=== PATIENT | male | born 1940 | race Caucasian/White ===

== ENCOUNTER 2018-11-01 00:04 | Inpatient (IN) | payer MEDICARE, BC ==
[2018-11-01] VITALS (92 sets, daily range): BP systolic 70–115; BP diastolic 32–99; BMI 24.9
[2018-11-01 00:48] LABS: BASOPHILS 0.1 % (0-2); EOSINOPHILS 0 % (0-7); HEMATOCRIT 38.4 % (42.0-54.0); HEMOGLOBIN 13.1 g/dL (13.5-17.5); IMMATURE GRANULOCYTES 0.6 % (0-5); LYMPHOCYTES 4.6 % (15-50); MCH 34.2 pg (26.0-34.0); MCHC 34.1 g/dL (31.0-37.0); MCV 100.3 fL (80.0-100.0); MEAN PLATELET VOLUME 9.4 fL (7.4-10.4); MONOCYTES 4.4 % (2-11); NEUTROPHILS 90.3 % (40-80); PLATELET COUNT 153 10x3/uL (130-400); RBC 3.83 10x6/uL (4.20-6.10); RDW 13.7 % (11.5-14.5); WBC 9.1 10x3/uL (4.8-10.8)
[2018-11-01 00:56] LABS: APTT 39.2 SECONDS (22.8-39.4); INR 1.68 (0.85-1.17); PROTIME 19.2 SECONDS (11.6-15.0)
[2018-11-01 01:04] LABS: ALBUMIN 2.7 g/dL (3.4-5.0); ALKALINE PHOSPHATASE 939 U/L (46-116); ALT (SGPT) 28 U/L (10-68); BILIRUBIN - TOTAL 0.81 mg/dL (0.2-1.3); CALC OSMOLALITY 284 mosm/kg (275-300); CALCIUM 7.4 mg/dL (8.5-10.1); CARBON DIOXIDE 16.2 mmol/L (21.0-32.0); CHLORIDE - SERUM 104 mmol/L (98-107); CREATININE - SERUM 2.1 mg/dL (0.6-1.3); GLUCOSE 154 mg/dL (74-106); POTASSIUM - SERUM 4.9 mmol/L (3.5-5.1); PROTEIN - SERUM 5.8 g/dL (6.4-8.2); SODIUM 138 mmol/L (136-145); UREA NITROGEN 29 mg/dL (7-18); eGFR NON AFRICAN AMERICAN 32 mL/min (90-120)
[2018-11-01 01:21] LABS: CKMB 30.7 U/L (0.0-3.6); CREATINE KINASE 1422 UL (21-232)
[2018-11-01 01:22] LABS: TROPONIN-I 0.291 ng/mL (0.000-0.060)
[2018-11-01 01:30] LABS: APPEARANCE HAZY (CLEAR); BILIRUBIN NEGATIVE (NEGATIVE); COLOR BROWN (YELLOW); GLUCOSE NEGATIVE (NEGATIVE); KETONE NEGATIVE (NEGATIVE); NITRITE NEGATIVE (NEGATIVE); PROTEIN NEGATIVE (NEGATIVE); SPECIFIC GRAVITY 1.015 (1.005-1.020); UROBILINOGEN NORMAL (NORMAL)
[2018-11-01 01:32] LABS: AMORPHOUS SEDIMENT >1+ /lpf (NONE SEEN); BACTERIA NONE SEEN /hpf (NONE SEEN); EPITHELIAL CELLS NSEEN /hpf (0-5); GRANULAR CAST 0-5 /lpf (NONE SEEN); WHITE CELLS - URINE 0-5 /hpf (0-5)
[2018-11-01] MEDS ORDERED: LISINOPRIL20 MG PO (02:46)
[2018-11-01] MEDS ORDERED: CLARITIN 10 MG10 MG PO (02:50)
[2018-11-01] MEDS ORDERED: MECLIZINE HCL25 MG PO (02:52)
[2018-11-01] MEDS ORDERED: MULTI-DAY VITAM1 TAB PO (02:54)
[2018-11-01] MEDS ORDERED: PROTONIX40 MG PO (03:00)
[2018-11-01] MEDS ORDERED: BAYER CHEWABLE81 MG PO (03:02)
[2018-11-01] MEDS ORDERED: COLCRYS0.6 MG PO (03:03)
[2018-11-01] MEDS ORDERED: PLAVIX75 MG PO (03:03)
[2018-11-01] MEDS ORDERED: LEVO-T88 MCG PO (03:04)
[2018-11-01] MEDS ORDERED: ZOFRAN8 MG (03:09)
[2018-11-01] MEDS ORDERED: NORVASC10 MG PO (03:10)
[2018-11-01 07:42] LABS: CKMB 38.3 U/L (0.0-3.6)
[2018-11-01 07:54] LABS: CREATINE KINASE 2072 UL (21-232); TROPONIN-I 0.684 ng/mL (0.000-0.060)
[2018-11-01 13:43] LABS: CKMB 37.5 U/L (0.0-3.6); CREATINE KINASE 2314 UL (21-232)
[2018-11-01 19:15] LABS: CKMB 48.9 U/L (0.0-3.6); CREATINE KINASE 2654 UL (21-232)
[2018-11-01 19:16] LABS: TROPONIN-I 0.636 ng/mL (0.000-0.060)
[2018-11-02] VITALS (61 sets, daily range): BP systolic 84–152; BP diastolic 48–88; BMI 25.1
[2018-11-02 08:05] LABS: HEMATOCRIT 35.7 % (42.0-54.0); HEMOGLOBIN 12.6 g/dL (13.5-17.5); MCH 33.6 pg (26.0-34.0); MCHC 35.3 g/dL (31.0-37.0); MCV 95.2 fL (80.0-100.0); MEAN PLATELET VOLUME 10.3 fL (7.4-10.4); PLATELET COUNT 94 10x3/uL (130-400); RBC 3.75 10x6/uL (4.20-6.10); WBC 12.3 10x3/uL (4.8-10.8)
[2018-11-02 08:21] LABS: ANION GAP 18.8 mmol/L (8-16); BILIRUBIN - TOTAL 0.55 mg/dL (0.2-1.3); CARBON DIOXIDE 15.4 mmol/L (21.0-32.0); POTASSIUM - SERUM 5.2 mmol/L (3.5-5.1)
[2018-11-02 08:22] LABS: CALCIUM 6.8 mg/dL (8.5-10.1)
[2018-11-02 09:07] LABS: CRENATED CELLS 2+; LYMPHOCYTES 8 % (15-50); MONOCYTES 19 % (2-11); NEUTROPHILS 49 % (40-80); PLATELET ESTIMATE DECREASED; ROULEAUX OCC
[2018-11-02 12:41] LABS: LIPASE 40 U/L (73-393)
[2018-11-02 12:43] LABS: AMYLASE - SERUM 424 U/L (25-115)
[2018-11-03] VITALS (89 sets, daily range): BP systolic 85–121; BP diastolic 45–78
[2018-11-03 05:31] LABS: BASOPHILS 0 % (0-2); EOSINOPHILS 0 % (0-7); HEMATOCRIT 30.6 % (42.0-54.0); HEMOGLOBIN 10.9 g/dL (13.5-17.5); IMMATURE GRANULOCYTES 0.5 % (0-5); LYMPHOCYTES 2.8 % (15-50); MCH 32.9 pg (26.0-34.0); MCHC 35.6 g/dL (31.0-37.0); MEAN PLATELET VOLUME 10.4 fL (7.4-10.4); MONOCYTES 1.3 % (2-11); NEUTROPHILS 95.4 % (40-80); RBC 3.31 10x6/uL (4.20-6.10); RDW 14.3 % (11.5-14.5); WBC 11.6 10x3/uL (4.8-10.8)
[2018-11-03 05:38] LABS: MCV 92.4 fL (80.0-100.0); PLATELET COUNT 64 10x3/uL (130-400)
[2018-11-03 05:42] LABS: INR 1.34 (0.85-1.17)
[2018-11-03 06:10] LABS: ALBUMIN 1.9 g/dL (3.4-5.0); ALKALINE PHOSPHATASE 409 U/L (46-116); ALT (SGPT) 39 U/L (10-68); BILIRUBIN - TOTAL 0.57 mg/dL (0.2-1.3); CALC OSMOLALITY 294 mosm/kg (275-300); CHLORIDE - SERUM 107 mmol/L (98-107); CREATININE - SERUM 2.1 mg/dL (0.6-1.3); GLUCOSE 129 mg/dL (74-106); MAGNESIUM - SERUM 2.6 mg/dL (1.8-2.4); PHOSPHOROUS 3.5 mg/dL (2.5-4.9); PROTEIN - SERUM 4.8 g/dL (6.4-8.2); SODIUM 141 mmol/L (136-145); UREA NITROGEN 46 mg/dL (7-18); URIC ACID 5.2 mg/dL (2.6-7.2); VANCOMYCIN - TROUGH 9.5 ug/mL (10.0-20.0); eGFR NON AFRICAN AMERICAN 32 mL/min (90-120)
[2018-11-03 06:44] LABS: CARBON DIOXIDE 24.3 mmol/L (21.0-32.0); CREATINE KINASE 961 UL (21-232); POTASSIUM - SERUM 3.4 mmol/L (3.5-5.1)
[2018-11-03 06:45] LABS: CALCIUM 6.7 mg/dL (8.5-10.1); CKMB 7.3 U/L (0.0-3.6); TROPONIN-I 0.198 ng/mL (0.000-0.060)
[2018-11-03 07:11] LABS: C-REACTIVE PROTEIN 45.8 mg/dL (0.0-0.9)
--- NOTE | 2018-11-03 19:42 | MORECARE ---
CASE MANAGEMENT DISCHARGE SUMMARY PATIENT: ANGELICA ZARATE UNIT: [id number] ADM DATE: 11/01/18 AGE: 78 : 38 SEX: M ROOM/BED: D.2310 AUTHOR: LISSETH GERMAIN PHYSICIAN: REFERRING PHYSICIAN: BUD BERNSTEIN MD DATE OF SERVICE: 11/03/18 Discharge Plan Patient Name: ANGELICA ZARATE [facility] [facility] 1940 Planned Disposition: Anticipated Discharge Date: Discharge Date: Expected LOS: Initial Reviewer: [email or web address] Initial Review Date: 11/03/2018 Generated: 11/03/18 8:42 pm Patient Name: ANGELICA ZARATE Page 62009 at 1942 All edits/amendments must be made on the electronic document DICTATION DATE: 11/03/181941 COUNSELLING PSYCHOLOGIST: CARLY 11/03/181941 RPT#: [id number] DC DATE: STATUS: ADM IN [facility] [address] [place] [address] END OF REPORT
--- NOTE | 2018-11-03 19:49 | MORECARE ---
CASE MANAGEMENT DISCHARGE SUMMARY PATIENT: ANGELICA ZARATE UNIT: [id number] ADM DATE: 11/01/18 AGE: 78 : 38 SEX: M ROOM/BED: D.2310 AUTHOR: LISSETH GERMAIN PHYSICIAN: REFERRING PHYSICIAN: BUD BERNSTEIN MD DATE OF SERVICE: 11/03/18 Discharge Plan Patient Name: ANGELICA ZARATE Facility: [facility]:[place] : 1940 Planned Disposition: Anticipated Discharge Date: Discharge Date: Expected LOS: Initial Reviewer: [email or web address] Initial Review Date: 11/03/2018 Generated: 11/03/18 8:48 pm DCPIA - Discharge Planning Initial Assessment Updated by [email or web address]: Yeny Marcus on 11/03/18 7:44 pm * Is the patient Alert and Oriented? Yes * How many steps to enter\exit or inside your home? * PCP Lion Plascencia * [facility] * Preadmission Environment Home Alone * ADLs Independent * Other Equipment cane, walker * List name and contact numbers for known caregivers / representatives who currently or will assist patient after discharge: Guerda - daughter- [phone] Oralia - daughter- [phone] [place]on - son POA [phone] * Verbal permission to speak to the caregivers and representatives has been obtained from the patient. Yes * Community resources currently utilized None * Additional services required to return to the preadmission environment? No * Can the patient safely return to the preadmission environment? Yes * Has this patient been hospitalized within the prior 30 days at any hospital? No Last DP export: 11/03/18 6:42 pm Patient Name: ANGELICA ZARATE Page 32656 at 1949 All edits/amendments must be made on the electronic document DICTATION DATE: 11/03/181947 HAT BRUSHER MACHINE: CARLY 11/03/181947 RPT#: [id number] DC DATE: STATUS: ADM IN [facility] [address] [place] [address] END OF REPORT
--- NOTE | 2018-11-03 19:55 | MORECARE ---
CASE MANAGEMENT DISCHARGE SUMMARY PATIENT: ANGELICA ZARATE UNIT: [id number] ADM DATE: 11/01/18 AGE: 78 : 38 SEX: M ROOM/BED: D.2310 AUTHOR: MARCELLUS,DOC PHYSICIAN: REFERRING PHYSICIAN: BUD BERNSTEIN MD DATE OF SERVICE: 11/03/18 Discharge Plan Patient Name: ANGELICA ZARATE Facility: [facility]:[place] : 1940 Planned Disposition: Anticipated Discharge Date: Discharge Date: Expected LOS: Initial Reviewer: [email or web address] Initial Review Date: 11/03/2018 Generated: 11/03/18 8:55 pm Comments DCP- Discharge Planning Updated by [email or web address]: Yeny Marcus on 11/03/18 6:[address] Patient Name: ANGELICA ZARATE Admission Status: ER Accout number: [id number] Admission Date: 11-01-2018 : 1940 Admission Diagnosis:SEPSIS, UNSPECIFIED ORGANISM Attending: BUD BERNSTEIN Current LOS: 2 Anticipated DC Date: Planned Disposition: Primary Insurance: MEDICARE A & B Discharge Planning Comments: CM met with patients Daughters (Guerda & Oralia) at patients bedside. Patient is currently on . Family states that patient lives alone. They are uncertain as to what his disposition may be at discharge. They stated he may need home health services or rehab. CM will continue to follow and assist as needed with discharge planning / needs. Production Proofreader: Yeny Marcus DCPIA - Discharge Planning Initial Assessment Updated by [email or web address]: Yeny Marcus on 11/03/18 7:44 pm * Is the patient Alert and Oriented? Yes * How many steps to enter\exit or inside your home? * PCP Lion [facility] * [facility] * Preadmission Environment Home Alone * ADLs Independent * Other Equipment cane, walker * List name and contact numbers for known caregivers / representatives who currently or will assist patient after discharge: Guerda - daughter- [phone] Oralia - daughter- [phone] [place] - son POA- [phone] * Verbal permission to speak to the caregivers and representatives has been obtained from the patient. Yes * Community resources currently utilized None * Additional services required to return to the preadmission environment? No * Can the patient safely return to the preadmission environment? Yes * Has this patient been hospitalized within the prior 30 days at any hospital? No Last DP export: 11/03/18 6:49 pm Patient Name: ANGELICA ZARATE Page 31451 at 1954 All edits/amendments must be made on the electronic document DICTATION DATE: 11/03/181954 INVESTIGATION OFFICER: CARLY 11/03/181954 RPT#: [id number] DC DATE: STATUS: ADM IN [facility] [address] [place] [address] END OF REPORT
[2018-11-04] VITALS (41 sets, daily range): BP systolic 94–113; BP diastolic 45–65
[2018-11-04 05:48] LABS: HEMATOCRIT 27.7 % (42.0-54.0); HEMOGLOBIN 10.1 g/dL (13.5-17.5); MCHC 36.5 g/dL (31.0-37.0); MCV 90.5 fL (80.0-100.0); MEAN PLATELET VOLUME 11.8 fL (7.4-10.4); RBC 3.06 10x6/uL (4.20-6.10); RDW 14.3 % (11.5-14.5)
[2018-11-04 06:24] LABS: BILIRUBIN - TOTAL 0.88 mg/dL (0.2-1.3); CARBON DIOXIDE 26.7 mmol/L (21.0-32.0); CREATININE - SERUM 1.7 mg/dL (0.6-1.3); MAGNESIUM - SERUM 2.6 mg/dL (1.8-2.4); PHOSPHOROUS 3.1 mg/dL (2.5-4.9); PROTEIN - SERUM 4.6 g/dL (6.4-8.2)
[2018-11-04 06:26] LABS: WBC 8.4 10x3/uL (4.8-10.8)
[2018-11-04 06:27] LABS: PLATELET COUNT 44 10x3/uL (130-400); POTASSIUM - SERUM 2.7 mmol/L (3.5-5.1)
[2018-11-04 06:28] LABS: TROPONIN-I 0.093 ng/mL (0.000-0.060)
[2018-11-04 06:36] LABS: C-REACTIVE PROTEIN 40.2 mg/dL (0.0-0.9)
[2018-11-04 06:44] LABS: INR 1.34 (0.85-1.17)
[2018-11-04 08:39] LABS: LYMPHOCYTES 11 % (15-50); MONOCYTES 13 % (2-11); NEUTROPHILS 65 % (40-80); PLATELET ESTIMATE DECREASED; ROULEAUX OCC
[2018-11-05] VITALS (24 sets, daily range): BP systolic 99–130; BP diastolic 48–71
[2018-11-05 05:04] LABS: HEMATOCRIT 26.3 % (42.0-54.0); HEMOGLOBIN 9.6 g/dL (13.5-17.5); MCH 33.1 pg (26.0-34.0); MCHC 36.5 g/dL (31.0-37.0); MCV 90.7 fL (80.0-100.0); MEAN PLATELET VOLUME 11.9 fL (7.4-10.4); RDW 14.5 % (11.5-14.5); WBC 9.1 10x3/uL (4.8-10.8)
[2018-11-05 05:06] LABS: PLATELET COUNT 36 10x3/uL (130-400)
[2018-11-05 05:19] LABS: % SATURATION 21 % (15-55); IRON 18 ug/dl (35-150); TOTAL IRON BIND CAPACITY 83 ug/dl (260-445); UNSAT IRON BIND CAPACITY 65 ug/dl (150-375)
[2018-11-05 05:21] LABS: APTT 39.6 SECONDS (22.8-39.4); INR 1.37 (0.85-1.17); PROTIME 16.3 SECONDS (11.6-15.0)
[2018-11-05 05:29] LABS: CRENATED CELLS 2+; D-DIMER-QUANTITATIVE 11.53 ug/mLFEU (0.20-0.54); LYMPHOCYTES 9 % (15-50); MONOCYTES 21 % (2-11); NEUTROPHILS 50 % (40-80); PLATELET ESTIMATE DECREASED
[2018-11-05 05:36] LABS: ALBUMIN 1.8 g/dL (3.4-5.0); ANION GAP 11.1 mmol/L (8-16); BILIRUBIN - TOTAL 1.54 mg/dL (0.2-1.3); CREATININE - SERUM 1.3 mg/dL (0.6-1.3); MAGNESIUM - SERUM 2.6 mg/dL (1.8-2.4); PHOSPHOROUS 2.3 mg/dL (2.5-4.9); POTASSIUM - SERUM 3.1 mmol/L (3.5-5.1); PROTEIN - SERUM 4.3 g/dL (6.4-8.2)
[2018-11-05 05:37] LABS: CALCIUM 6.9 mg/dL (8.5-10.1)
[2018-11-05 05:54] LABS: C-REACTIVE PROTEIN 39.1 mg/dL (0.0-0.9)
[2018-11-06] VITALS (23 sets, daily range): BP systolic 95–128; BP diastolic 50–66
[2018-11-06 05:05] LABS: HEMATOCRIT 25.6 % (42.0-54.0); HEMOGLOBIN 9.3 g/dL (13.5-17.5); LYMPHOCYTES 3.3 % (15-50); MCH 34.4 pg (26.0-34.0); MCHC 36.3 g/dL (31.0-37.0); MCV 94.8 fL (80.0-100.0); NEUTROPHILS 91.2 % (40-80); RDW 17.9 % (11.5-14.5)
[2018-11-06 05:06] LABS: PLATELET COUNT 24 10x3/uL (130-400)
[2018-11-06 05:08] LABS: BILIRUBIN - TOTAL 1.4 mg/dL (0.2-1.3); CALCIUM 7.4 mg/dL (8.5-10.1); CARBON DIOXIDE 22.5 mmol/L (21.0-32.0); CREATININE - SERUM 1.2 mg/dL (0.6-1.3); MAGNESIUM - SERUM 2.7 mg/dL (1.8-2.4); PHOSPHOROUS 2.3 mg/dL (2.5-4.9); PROTEIN - SERUM 4.5 g/dL (6.4-8.2)
[2018-11-06 05:11] LABS: POTASSIUM - SERUM 3.7 mmol/L (3.5-5.1)
[2018-11-06 05:13] LABS: INR 1.48 (0.85-1.17); PROTIME 17.4 SECONDS (11.6-15.0)
[2018-11-06 05:14] LABS: ANION GAP 12.2 mmol/L (8-16); C-REACTIVE PROTEIN 95.8 mg/dL (0.0-0.9)
[2018-11-06 10:19] LABS: FOLATE (FOLIC ACID) - SERUM 19.6 ng/mL (>3.0)
[2018-11-06 13:25] LABS: APTT 39.9 SECONDS (22.8-39.4)
[2018-11-06 13:26] LABS: INR 1.64 (0.85-1.17); PROTIME 18.8 SECONDS (11.6-15.0)
[2018-11-06 13:33] LABS: D-DIMER-QUANTITATIVE 12.14 ug/mLFEU (0.20-0.54)
[2018-11-07] VITALS (23 sets, daily range): BP systolic 99–140; BP diastolic 36–89
[2018-11-07 06:41] LABS: HEMATOCRIT 24.3 % (42.0-54.0); HEMOGLOBIN 8.7 g/dL (13.5-17.5); MCH 33.2 pg (26.0-34.0); MCHC 35.8 g/dL (31.0-37.0); RBC 2.62 10x6/uL (4.20-6.10); RDW 15.6 % (11.5-14.5); WBC 13.6 10x3/uL (4.8-10.8)
[2018-11-07 06:46] LABS: INR 1.69 (0.85-1.17); PROTIME 19.3 SECONDS (11.6-15.0)
[2018-11-07 07:15] LABS: ALBUMIN 2.2 g/dL (3.4-5.0); ALKALINE PHOSPHATASE 159 U/L (46-116); ALT (SGPT) 25 U/L (10-68); BILIRUBIN - TOTAL 1.25 mg/dL (0.2-1.3); CALCIUM 7.7 mg/dL (8.5-10.1); CARBON DIOXIDE 22.4 mmol/L (21.0-32.0); CREATINE KINASE 92 UL (21-232); MAGNESIUM - SERUM 2.6 mg/dL (1.8-2.4); PHOSPHOROUS 2.6 mg/dL (2.5-4.9); POTASSIUM - SERUM 4.1 mmol/L (3.5-5.1); PRO BNP 1354 pg/mL (0-450); PROTEIN - SERUM 4.8 g/dL (6.4-8.2); SODIUM 151 mmol/L (136-145); UREA NITROGEN 42 mg/dL (7-18); eGFR NON AFRICAN AMERICAN 76 mL/min (90-120)
[2018-11-07 07:16] LABS: C-REACTIVE PROTEIN 45.4 mg/dL (0.0-0.9); CALC OSMOLALITY 311 mosm/kg (275-300); CHLORIDE - SERUM 119 mmol/L (98-107); GLUCOSE 109 mg/dL (74-106)
[2018-11-07 07:57] LABS: MCV 92.7 fL (80.0-100.0)
[2018-11-07 08:05] LABS: PLATELET COUNT 35 10x3/uL (130-400)
[2018-11-07 08:49] LABS: LYMPHOCYTES 8 % (15-50); MONOCYTES 4 % (2-11); NEUTROPHILS 85 % (40-80); PLATELET ESTIMATE DECREASED
[2018-11-07 12:54] LABS: CREATININE - URINE 52.3 mg/dL (30-125); PRO/CRE RATIO URINE 1.5 mg/g; PROTEIN - URINE 79.6 mg/dL (0.0-11.9)
[2018-11-07 17:24] LABS: CALC OSMOLALITY 311 mosm/kg (275-300); CALCIUM 7.5 mg/dL (8.5-10.1); GLUCOSE 111 mg/dL (74-106); POTASSIUM - SERUM 4.6 mmol/L (3.5-5.1); SODIUM 151 mmol/L (136-145); UREA NITROGEN 42 mg/dL (7-18); eGFR NON AFRICAN AMERICAN 76 mL/min (90-120)
[2018-11-07 17:26] LABS: CHLORIDE - SERUM 118 mmol/L (98-107)
[2018-11-07 21:51] LABS: APPEARANCE CLEAR (CLEAR); BILIRUBIN NEGATIVE (NEGATIVE); COLOR YELLOW (YELLOW); GLUCOSE NEGATIVE (NEGATIVE); KETONE NEGATIVE (NEGATIVE); NITRITE NEGATIVE (NEGATIVE); PROTEIN NEGATIVE (NEGATIVE); RED CELLS - URINE NONE SEEN /hpf (0-5); SPECIFIC GRAVITY 1.015 (1.005-1.020); UROBILINOGEN NORMAL (NORMAL); WHITE CELLS - URINE NSEEN /hpf (0-5)
[2018-11-08] VITALS (23 sets, daily range): BP systolic 90–127; BP diastolic 47–81
[2018-11-08 03:39] LABS: HEMATOCRIT 20.8 % (42.0-54.0); MCH 32.6 pg (26.0-34.0); MCHC 34.6 g/dL (31.0-37.0); MCV 94.1 fL (80.0-100.0); RBC 2.21 10x6/uL (4.20-6.10); WBC 12.6 10x3/uL (4.8-10.8)
[2018-11-08 03:40] LABS: HEMOGLOBIN 7.2 g/dL (13.5-17.5)
[2018-11-08 03:41] LABS: PLATELET COUNT 45 10x3/uL (130-400)
[2018-11-08 03:55] LABS: CALCIUM 7.4 mg/dL (8.5-10.1); CREATININE - SERUM 1.2 mg/dL (0.6-1.3)
[2018-11-08 03:56] LABS: ANION GAP 12.8 mmol/L (8-16); POTASSIUM - SERUM 3.8 mmol/L (3.5-5.1)
[2018-11-08 04:29] LABS: EOSINOPHILS 1 % (0-7); LYMPHOCYTES 12 % (15-50); MONOCYTES 3 % (2-11); NEUTROPHILS 80 % (40-80); PLATELET ESTIMATE DECREASED
[2018-11-08 04:30] LABS: PLATELET MORPHOLOGY GIANT PLTS PRESENT
[2018-11-08 11:54] LABS: CALC OSMOLALITY 312 mosm/kg (275-300); CALCIUM 7.3 mg/dL (8.5-10.1); CARBON DIOXIDE 19.2 mmol/L (21.0-32.0); GLUCOSE 127 mg/dL (74-106); SODIUM 152 mmol/L (136-145); UREA NITROGEN 39 mg/dL (7-18); eGFR NON AFRICAN AMERICAN 76 mL/min (90-120)
[2018-11-08 11:59] LABS: CHLORIDE - SERUM 120 mmol/L (98-107)
[2018-11-08 12:09] LABS: ANION GAP 14.3 mmol/L (8-16); CALCIUM 7.3 mg/dL (8.5-10.1); CARBON DIOXIDE 20.6 mmol/L (21.0-32.0); CREATININE - SERUM 1.2 mg/dL (0.6-1.3); POTASSIUM - SERUM 3.9 mmol/L (3.5-5.1)
[2018-11-08 16:07] LABS: ACID FAST SMEAR Negative (()); AFB SPECIMEN PROCESSING Concentration (())
[2018-11-08 20:42] LABS: ANION GAP 14.2 mmol/L (8-16); CALCIUM 7.4 mg/dL (8.5-10.1); CARBON DIOXIDE 19.3 mmol/L (21.0-32.0); CREATININE - SERUM 1.1 mg/dL (0.6-1.3); POTASSIUM - SERUM 3.5 mmol/L (3.5-5.1)
[2018-11-09] VITALS (24 sets, daily range): BP systolic 105–128; BP diastolic 51–65
[2018-11-09 05:06] LABS: LYMPHOCYTES 3.2 % (15-50); MCH 33.2 pg (26.0-34.0); MCHC 35.9 g/dL (31.0-37.0); MCV 92.4 fL (80.0-100.0); NEUTROPHILS 93.2 % (40-80); RDW 18.6 % (11.5-14.5); WBC 12.9 10x3/uL (4.8-10.8)
[2018-11-09 05:07] LABS: HEMATOCRIT 25.6 % (42.0-54.0); HEMOGLOBIN 9.2 g/dL (13.5-17.5); PLATELET COUNT 46 10x3/uL (130-400); RBC 2.77 10x6/uL (4.20-6.10)
[2018-11-09 05:12] LABS: PROTIME 22.5 SECONDS (11.6-15.0)
[2018-11-09 05:14] LABS: INR 2.06 (0.85-1.17)
[2018-11-09 05:28] LABS: ALBUMIN 2.1 g/dL (3.4-5.0); BILIRUBIN - TOTAL 1.15 mg/dL (0.2-1.3); CALCIUM 7.5 mg/dL (8.5-10.1); CREATININE - SERUM 1.1 mg/dL (0.6-1.3); MAGNESIUM - SERUM 2.1 mg/dL (1.8-2.4); PHOSPHOROUS 2.8 mg/dL (2.5-4.9); POTASSIUM - SERUM 3.9 mmol/L (3.5-5.1); PROTEIN - SERUM 4.7 g/dL (6.4-8.2)
[2018-11-09 05:34] LABS: ANION GAP 11.9 mmol/L (8-16)
[2018-11-09 05:55] LABS: C-REACTIVE PROTEIN 38.6 mg/dL (0.0-0.9)
[2018-11-09 12:12] LABS: ANION GAP 11.9 mmol/L (8-16); CALCIUM 7.5 mg/dL (8.5-10.1); CARBON DIOXIDE 22.5 mmol/L (21.0-32.0); CREATININE - SERUM 1.2 mg/dL (0.6-1.3); POTASSIUM - SERUM 3.4 mmol/L (3.5-5.1)
[2018-11-09 14:11] LABS: FUNGUS STAIN Final report (())
[2018-11-10] VITALS (23 sets, daily range): BP systolic 112–141; BP diastolic 53–83
[2018-11-10 05:56] LABS: CALC OSMOLALITY 297 mosm/kg (275-300); CALCIUM 7.7 mg/dL (8.5-10.1); CARBON DIOXIDE 20.7 mmol/L (21.0-32.0); CHLORIDE - SERUM 113 mmol/L (98-107); POTASSIUM - SERUM 3.7 mmol/L (3.5-5.1); SODIUM 144 mmol/L (136-145); UREA NITROGEN 36 mg/dL (7-18); eGFR NON AFRICAN AMERICAN 76 mL/min (90-120)
[2018-11-10 06:09] LABS: GLUCOSE 156 mg/dL (74-106)
[2018-11-10 06:22] LABS: BASOPHILS 0.1 % (0-2); EOSINOPHILS 0 % (0-7); HEMATOCRIT 28.9 % (42.0-54.0); HEMOGLOBIN 10.3 g/dL (13.5-17.5); LYMPHOCYTES 4.4 % (15-50); MCHC 35.6 g/dL (31.0-37.0); MONOCYTES 3.2 % (2-11); NEUTROPHILS 91.3 % (40-80); RBC 3.22 10x6/uL (4.20-6.10); RDW 15.9 % (11.5-14.5); WBC 10.2 10x3/uL (4.8-10.8)
[2018-11-10 06:23] LABS: MCV 89.8 fL (80.0-100.0)
[2018-11-10 06:24] LABS: PLATELET COUNT 56 10x3/uL (130-400)
[2018-11-10 06:33] LABS: PLATELET ESTIMATE DECREASED; PLATELET MORPHOLOGY NORMAL PLT MORPH
[2018-11-11] VITALS (22 sets, daily range): BP systolic 124–148; BP diastolic 60–92
[2018-11-11 05:36] LABS: APTT 34.7 SECONDS (22.8-39.4); INR 1.35 (0.85-1.17); PROTIME 16.1 SECONDS (11.6-15.0)
[2018-11-11 06:18] LABS: ALBUMIN 2.4 g/dL (3.4-5.0); ALKALINE PHOSPHATASE 103 U/L (46-116); ALT (SGPT) 23 U/L (10-68); BILIRUBIN - TOTAL 0.93 mg/dL (0.2-1.3); CALC OSMOLALITY 304 mosm/kg (275-300); CALCIUM 7.4 mg/dL (8.5-10.1); CARBON DIOXIDE 20.8 mmol/L (21.0-32.0); CHLORIDE - SERUM 115 mmol/L (98-107); CREATININE - SERUM 0.9 mg/dL (0.6-1.3); GLUCOSE 159 mg/dL (74-106); MAGNESIUM - SERUM 2.2 mg/dL (1.8-2.4); PHOSPHOROUS 3.8 mg/dL (2.5-4.9); POTASSIUM - SERUM 3.5 mmol/L (3.5-5.1); PROTEIN - SERUM 4.7 g/dL (6.4-8.2); SODIUM 146 mmol/L (136-145); UREA NITROGEN 42 mg/dL (7-18); eGFR NON AFRICAN AMERICAN 86 mL/min (90-120)
[2018-11-11 06:25] LABS: BASOPHILS 0.1 % (0-2); EOSINOPHILS 0 % (0-7); HEMATOCRIT 25.6 % (42.0-54.0); IMMATURE GRANULOCYTES 1.3 % (0-5); LYMPHOCYTES 3.9 % (15-50); MCH 31.9 pg (26.0-34.0); MCHC 35.2 g/dL (31.0-37.0); MCV 90.8 fL (80.0-100.0); MONOCYTES 4.8 % (2-11); NEUTROPHILS 89.9 % (40-80); PLATELET COUNT 69 10x3/uL (130-400); RBC 2.82 10x6/uL (4.20-6.10); RDW 16.1 % (11.5-14.5); WBC 16.3 10x3/uL (4.8-10.8)
[2018-11-11 18:21] LABS: CALC OSMOLALITY 306 mosm/kg (275-300); CALCIUM 7.7 mg/dL (8.5-10.1); CARBON DIOXIDE 20.9 mmol/L (21.0-32.0); CHLORIDE - SERUM 115 mmol/L (98-107); CREATININE - SERUM 0.8 mg/dL (0.6-1.3); GLUCOSE 169 mg/dL (74-106); POTASSIUM - SERUM 3.7 mmol/L (3.5-5.1); SODIUM 146 mmol/L (136-145); UREA NITROGEN 46 mg/dL (7-18); eGFR NON AFRICAN AMERICAN > 90 mL/min (90-120)
[2018-11-12] VITALS (24 sets, daily range): BP systolic 130–169; BP diastolic 63–112
[2018-11-12 06:05] LABS: CALC OSMOLALITY 314 mosm/kg (275-300); CALCIUM 7.6 mg/dL (8.5-10.1); CARBON DIOXIDE 21.3 mmol/L (21.0-32.0); GLUCOSE 196 mg/dL (74-106); MAGNESIUM - SERUM 2.3 mg/dL (1.8-2.4); PHOSPHOROUS 3.2 mg/dL (2.5-4.9); POTASSIUM - SERUM 3.5 mmol/L (3.5-5.1); SODIUM 150 mmol/L (136-145); TRIGLYCERIDE 115 mg/dL (30-200); UREA NITROGEN 46 mg/dL (7-18); eGFR NON AFRICAN AMERICAN 76 mL/min (90-120)
[2018-11-12 06:09] LABS: CHLORIDE - SERUM 118 mmol/L (98-107)
[2018-11-12 12:16] LABS: FUNGUS MYCOLOGY CULTURE Preliminary report (())
[2018-11-12 16:44] LABS: CALCIUM 7.6 mg/dL (8.5-10.1); CARBON DIOXIDE 21.5 mmol/L (21.0-32.0); CREATININE - SERUM 0.9 mg/dL (0.6-1.3); POTASSIUM - SERUM 3.6 mmol/L (3.5-5.1); SODIUM 151 mmol/L (136-145); UREA NITROGEN 44 mg/dL (7-18); eGFR NON AFRICAN AMERICAN 86 mL/min (90-120)
[2018-11-12 16:56] LABS: CALC OSMOLALITY 319 mosm/kg (275-300); GLUCOSE 252 mg/dL (74-106)
[2018-11-12 16:57] LABS: CHLORIDE - SERUM 118 mmol/L (98-107)
[2018-11-12 17:21] LABS: CREATININE - URINE 47.5 mg/dL (30-125); PRO/CRE RATIO URINE 1.1 mg/g; PROTEIN - URINE 50.9 mg/dL (0.0-11.9)
[2018-11-13] VITALS (24 sets, daily range): BP systolic 121–168; BP diastolic 54–84
[2018-11-13 06:42] LABS: CALCIUM 7.8 mg/dL (8.5-10.1); CARBON DIOXIDE 22.9 mmol/L (21.0-32.0); CREATININE - SERUM 0.8 mg/dL (0.6-1.3); MAGNESIUM - SERUM 2.4 mg/dL (1.8-2.4); PHOSPHOROUS 3.7 mg/dL (2.5-4.9); POTASSIUM - SERUM 3.7 mmol/L (3.5-5.1); SODIUM 153 mmol/L (136-145); UREA NITROGEN 43 mg/dL (7-18); eGFR NON AFRICAN AMERICAN > 90 mL/min (90-120)
[2018-11-13 06:46] LABS: CALC OSMOLALITY 319 mosm/kg (275-300); GLUCOSE 181 mg/dL (74-106)
[2018-11-13 06:47] LABS: CHLORIDE - SERUM 119 mmol/L (98-107)
[2018-11-13 07:25] LABS: HEMATOCRIT 25.9 % (42.0-54.0); HEMOGLOBIN 9.1 g/dL (13.5-17.5); MCH 33.1 pg (26.0-34.0); MCHC 35.1 g/dL (31.0-37.0); MCV 94.2 fL (80.0-100.0); RBC 2.75 10x6/uL (4.20-6.10); RDW 18.3 % (11.5-14.5); WBC 13.7 10x3/uL (4.8-10.8)
[2018-11-13 07:28] LABS: PLATELET COUNT 53 10x3/uL (130-400)
[2018-11-13 08:22] LABS: ANISOCYTOSIS OCC; HYPOCHROMASIA 1+; LYMPHOCYTES 8 % (15-50); MONOCYTES 11 % (2-11); NEUTROPHILS 77 % (40-80); PLATELET ESTIMATE DECREASED
--- NOTE | 2018-11-13 15:12 | EC ---
PATIENT:ANGELICA ZARATE DATE OF SERVICE: 11/01/18 SEX: M MEDICAL RECORD: [id number] DATE OF : 36 LOCATION:[facility] AGE OF PATIENT: 78 ADMISSION DATE: 11/01/18 REFERRING PHYSICIAN: INTERPRETING PHYSICIAN: KEVIN EPSTEIN MD ECHOCARDIOGRAM REPORT ECHO CHARGES 4 ECHO COMPLETE Date: 11/01/18 CLINICAL DIAGNOSIS: AFIB ECHOCARDIOGRAPHIC MEASUREMENTS (adult normal given) AC root (d.<3.7cm) 4.0 cm LV Septum d (<1.2 cm> 1.3 cm Valve Excursion 1.8 cm LV Septum (systole) 1.5 cm Left Atria (s.<4.0cm> 3.4 cm LVPW d(<1.2cm) 1.5 cm RV (d.<2.3cm) 5.1 cm LVPW (sytole) 1.6 cm LV diastole(<5.6CM) 4.6 cm MV E-F(>70mm/sec) cm LV systole 3.8 cm LVOT Diameter 2.3 cm MV exc.(>10mm) 1.2 cm Est.ejection fraction (50-75%) % DOPPLER: LVIT cm/sec A 40.0 cm/sec E 77.0 cm/sec LA cm/sec RVSP 27 mmHg LVOT 74 cm/sec AOP1/2T m/s Asc. Ao 106 cm/sec RVOT 66 cm/sec RA cm/sec PA 112 cm/sec AV Gradient Peak 4.49 mmHg AV Mean 2.58 mmHg AV Area 3.4 cm MV Gradient Peak 1.77 mmHg MV Mean 0.81 mmHg MV Area cm COMMENTS: Textile Colorist Dyer: Lilibeth SORIANO V/Stol Landing Signal Officer: 1 Dr. Epstein TAPE# PACS Pericardial Effusion N DATE OF SERVICE: 11/01/2018 ECHOCARDIOGRAM DATE OF SERVICE: 11/01/2018 FINDINGS: 1. Left ventricular chamber size is within normal limits. Left ventricular systolic function is moderately reduced, overall ejection fraction 30% to 35%. There is mild global hypokinesis throughout all segments with no discrete wall ECHOCARDIOGRAM REPORT [id number] ANGELICA ZARATE motion abnormalities present. 2. Left atrium is within normal limits at 3.4 cm. Right atrium and right ventricular chamber sizes are mildly dilated. 3. Valvular structures have normal structure and motion. 4. Doppler interrogation reveals mild tricuspid regurgitation, no other valvular insufficiency or stenosis. Pulmonary systolic pressure is estimated at 27 mmHg. 5. No evidence of pericardial effusion or left ventricular thrombus. TRANSINT:[id number] Voice Confirmation ID: [id number] DOCUMENT ID: [id number] KEVIN EPSTEIN MD at 1512 CC: [id number] DICTATION DATE: 11/02/18 0854 LABORER STEEL HANDLING: 11/02/18 0938 ADM IN [place] [id number] [place] [id number]
--- NOTE | 2018-11-13 15:12 | CN ---
PATIENT NAME:ANGELICA WYLIE MEDICAL RECORD: [id number] : 36 LOCATION:[facility].2310 ADMIT DATE: 11/01/18 ACCOUNT: [id number] CONSULTING PHYSICIAN: KEVIN SHEPPARD MD REFERRING PHYSICIAN: UBD BERNSTEIN MD DATE OF CONSULTATION: 11/02/2018 DIAGNOSES: 1. Increased troponin. 2. Atrial fibrillation. 3. Sepsis. 4. Pneumonia. 5. Respiratory failure. 6. History of hypertension. 7. History of peripheral vascular disease -- abdominal aortic aneurysm repair. HISTORY OF PRESENT ILLNESS: Mr. Wylie presents with shortness of breath, respiratory failure, found to have pneumonia, possible sepsis, initially with atrial fibrillation, rapid response. Cardizem drip restored sinus rhythm. He is now sinus in the 80s. He did have a mildly elevated troponin. EKG is with no acute ST-T abnormalities. PHYSICAL EXAMINATION: GENERAL APPEARANCE: Well-nourished, well-developed, appears stated age. Level of distress, comfortable. PSYCHIATRIC: Mental status, alert, normal affect. Orientation, oriented to time, place and person. EYES: Lids and conjunctiva, noninjected. No discharge, no pallor. ENT: Lips, teeth, gums, normal dentition. Oropharynx, no cyanosis, no pallor. NECK: Carotid arteries, bilateral normal upstroke, no bruits, no thrills. JUGULAR VEINS: No jugular venous pressure or distention. CERVICAL LYMPH NODES: Nontender, nonenlarged. THYROID: Not enlarged. Nontender. No nodules. LUNGS: Respiratory effort, unlabored. CHEST: Normal curvature. No thoracic deformity. No chest wall tenderness. Percussion, resonant. Auscultation, clear. No wheezes, no rales, no rhonchi. CARDIOVASCULAR: Precordial exam, nondisplaced. No heaves or pericardial thrills. Rate and rhythm, regular. Heart sounds, normal S1, normal S2. No S3, no gallop, no rub. Systolic murmur, not heard. Diastolic murmur, not heard. EXTREMITIES: No cyanosis, no edema. Peripheral pulses, full and equal in all extremities, except as noted. No bruits appreciated. ABDOMEN: Soft, nondistended. Normal aorta. No bruit. Nontender. No masses. Liver, nontender, no hepatomegaly. Spleen, nontender, no splenomegaly. MUSCULOSKELETAL: No joint tenderness. No joint swelling. No erythema. NEUROLOGICAL: Normal gait, normal strength, normal tone. SKIN: Warm and dry. OVERALL IMPRESSION: 1. Atrial fibrillation with rapid response, resolved. 2. Increased troponin, most likely secondary to demand ischemia from the respiratory failure as well as the atrial fibrillation. At this time, we will get an echocardiogram, no other cardiac workup or treatment is necessary in the acute setting. TRANSINT:[id number] Voice Confirmation ID: [id number] DOCUMENT ID: [id number] CONSULT REPORT [id number] ANGELICA WYLIE, KEVIN GUEVARA at 1512 CC: [id number] DICTATION DATE: 11/02/1849 PATENT CHEMIST: 11/02/18 0904 ADM IN [facility] [address] [place] [address]
[2018-11-14] VITALS (24 sets, daily range): BP systolic 126–152; BP diastolic 59–84
[2018-11-14 06:08] LABS: CALC OSMOLALITY 320 mosm/kg (275-300); CALCIUM 7.8 mg/dL (8.5-10.1); CARBON DIOXIDE 23.8 mmol/L (21.0-32.0); GLUCOSE 189 mg/dL (74-106); MAGNESIUM - SERUM 2.3 mg/dL (1.8-2.4); PHOSPHOROUS 3.4 mg/dL (2.5-4.9); POTASSIUM - SERUM 3.5 mmol/L (3.5-5.1); SODIUM 153 mmol/L (136-145); UREA NITROGEN 46 mg/dL (7-18); eGFR NON AFRICAN AMERICAN 76 mL/min (90-120)
[2018-11-14 06:10] LABS: CHLORIDE - SERUM 120 mmol/L (98-107)
[2018-11-14 16:21] LABS: CALC OSMOLALITY 320 mosm/kg (275-300); CALCIUM 7.4 mg/dL (8.5-10.1); CARBON DIOXIDE 24.3 mmol/L (21.0-32.0); CREATININE - SERUM 0.9 mg/dL (0.6-1.3); GLUCOSE 225 mg/dL (74-106); POTASSIUM - SERUM 3.4 mmol/L (3.5-5.1); SODIUM 152 mmol/L (136-145); UREA NITROGEN 46 mg/dL (7-18); eGFR NON AFRICAN AMERICAN 86 mL/min (90-120)
[2018-11-14 16:24] LABS: CHLORIDE - SERUM 119 mmol/L (98-107)
[2018-11-14 18:07] LABS: FUNGUS CULTURE RESULT 1 Candida glabrata (())
[2018-11-15] VITALS (24 sets, daily range): BP systolic 125–152; BP diastolic 59–85
[2018-11-15 04:59] LABS: BASOPHILS 0.1 % (0-2); EOSINOPHILS 0 % (0-7); HEMATOCRIT 22.1 % (42.0-54.0); HEMOGLOBIN 7.6 g/dL (13.5-17.5); LYMPHOCYTES 4.5 % (15-50); MCH 31.5 pg (26.0-34.0); MCHC 34.4 g/dL (31.0-37.0); MCV 91.7 fL (80.0-100.0); MONOCYTES 1.9 % (2-11); NEUTROPHILS 92.5 % (40-80); PLATELET COUNT 67 10x3/uL (130-400); RBC 2.41 10x6/uL (4.20-6.10); RDW 16.6 % (11.5-14.5); WBC 15.7 10x3/uL (4.8-10.8)
[2018-11-15 05:16] LABS: CALC OSMOLALITY 317 mosm/kg (275-300); CALCIUM 7.9 mg/dL (8.5-10.1); CARBON DIOXIDE 25.2 mmol/L (21.0-32.0); CREATININE - SERUM 0.9 mg/dL (0.6-1.3); GLUCOSE 199 mg/dL (74-106); MAGNESIUM - SERUM 2.1 mg/dL (1.8-2.4); PHOSPHOROUS 2.8 mg/dL (2.5-4.9); POTASSIUM - SERUM 3.7 mmol/L (3.5-5.1); SODIUM 151 mmol/L (136-145); UREA NITROGEN 46 mg/dL (7-18); eGFR NON AFRICAN AMERICAN 86 mL/min (90-120)
[2018-11-15 05:18] LABS: CHLORIDE - SERUM 119 mmol/L (98-107)
[2018-11-16] VITALS (24 sets, daily range): BP systolic 122–152; BP diastolic 52–92
[2018-11-16 05:23] LABS: HEMATOCRIT 27.6 % (42.0-54.0); HEMOGLOBIN 9.6 g/dL (13.5-17.5); MCH 31.2 pg (26.0-34.0); MCHC 34.8 g/dL (31.0-37.0); MCV 89.6 fL (80.0-100.0); PLATELET COUNT 65 10x3/uL (130-400); RBC 3.08 10x6/uL (4.20-6.10); RDW 16.9 % (11.5-14.5); WBC 15.7 10x3/uL (4.8-10.8)
[2018-11-16 05:30] LABS: CALC OSMOLALITY 312 mosm/kg (275-300); CALCIUM 7.6 mg/dL (8.5-10.1); CARBON DIOXIDE 27.1 mmol/L (21.0-32.0); CREATININE - SERUM 0.9 mg/dL (0.6-1.3); GLUCOSE 185 mg/dL (74-106); POTASSIUM - SERUM 3.9 mmol/L (3.5-5.1); SODIUM 149 mmol/L (136-145); UREA NITROGEN 45 mg/dL (7-18); eGFR NON AFRICAN AMERICAN 86 mL/min (90-120)
[2018-11-16 05:32] LABS: CHLORIDE - SERUM 117 mmol/L (98-107)
[2018-11-16 07:12] LABS: LYMPHOCYTES 7 % (15-50); MONOCYTES 1 % (2-11); NEUTROPHILS 83 % (40-80); PLATELET ESTIMATE DECREASED
[2018-11-17] VITALS (24 sets, daily range): BP systolic 94–150; BP diastolic 52–78
[2018-11-17 04:58] LABS: BASOPHILS 0 % (0-2); EOSINOPHILS 0 % (0-7); HEMATOCRIT 27.5 % (42.0-54.0); HEMOGLOBIN 9.5 g/dL (13.5-17.5); IMMATURE GRANULOCYTES 0.3 % (0-5); LYMPHOCYTES 1.6 % (15-50); MCH 30.9 pg (26.0-34.0); MCHC 34.5 g/dL (31.0-37.0); MCV 89.6 fL (80.0-100.0); MONOCYTES 4.6 % (2-11); NEUTROPHILS 93.5 % (40-80); PLATELET COUNT 84 10x3/uL (130-400); RBC 3.07 10x6/uL (4.20-6.10); RDW 16.8 % (11.5-14.5)
[2018-11-17 05:18] LABS: CALC OSMOLALITY 308 mosm/kg (275-300); CALCIUM 7.7 mg/dL (8.5-10.1); CARBON DIOXIDE 25.8 mmol/L (21.0-32.0); CHLORIDE - SERUM 114 mmol/L (98-107); CREATININE - SERUM 0.9 mg/dL (0.6-1.3); GLUCOSE 187 mg/dL (74-106); MAGNESIUM - SERUM 1.9 mg/dL (1.8-2.4); PHOSPHOROUS 3.2 mg/dL (2.5-4.9); POTASSIUM - SERUM 3.8 mmol/L (3.5-5.1); SODIUM 147 mmol/L (136-145); UREA NITROGEN 45 mg/dL (7-18); eGFR NON AFRICAN AMERICAN 86 mL/min (90-120)
[2018-11-18] VITALS (15 sets, daily range): BP systolic 114–141; BP diastolic 49–71
--- NOTE | 2018-11-18 00:37 | MORECARE ---
CASE MANAGEMENT DISCHARGE SUMMARY PATIENT: ANGELICA ZARATE UNIT: [id number] ADM DATE: 11/01/18 AGE: 78 : 38 SEX: M ROOM/BED: D.2310 AUTHOR: MARCELLUS,DOC PHYSICIAN: REFERRING PHYSICIAN: BUD BERNSTEIN MD DATE OF SERVICE: 11/18/18 Discharge Plan Patient Name: ANGELICA ZARATE Facility: [facility]:[place] : 1940 Planned Disposition: Anticipated Discharge Date: Discharge Date: Expected LOS: Initial Reviewer: [email or web address] Initial Review Date: 11/03/2018 Generated: 11/18/18 1:37 am Comments DCP- Discharge Planning Updated by [email or web address]: Yeny Marcus on 11/17/18 11:[address] CM received order for Hospice Eval. Family request to wait until Friday11/18/18 to start Hospice once all family is here. CM will continue to follow and assist as needed with discharge planning / needs. DCP- Discharge Planning Updated by [email or web address]: Yeny Marcus on 11/03/18 6:[address] Patient Name: ANGELICA ZARATE Admission Status: ER Accout number: [id number] Admission Date: 11-01-2018 : 1940 Admission Diagnosis:SEPSIS, UNSPECIFIED ORGANISM Attending: BUD BERNSTEIN Current LOS: 2 Anticipated DC Date: Planned Disposition: Primary Insurance: MEDICARE A & B Discharge Planning Comments: CM met with patients Daughters (Guerda & Oralia) at patients bedside. Patient is currently on mask . Family states that patient lives alone. They are uncertain as to what his disposition may be at discharge. They stated he may need home health services or rehab. CM will continue to follow and assist as needed with discharge planning / needs. Classification Inspector: Yeny Marcus DCPIA - Discharge Planning Initial Assessment Updated by [email or web address]: Yeny Marcus on 11/03/18 7:44 pm * Is the patient Alert and Oriented? Yes * How many steps to enter\exit or inside your home? * PCP [facility] * [facility] * Preadmission Environment Home Alone * ADLs Independent * Other Equipment cane, walker * List name and contact numbers for known caregivers / representatives who currently or will assist patient after discharge: Guerda - daughter- [phone] Oralia - daughter- [phone] [place] - son POA- [phone] * Verbal permission to speak to the caregivers and representatives has been obtained from the patient. Yes * Community resources currently utilized None * Additional services required to return to the preadmission environment? No * Can the patient safely return to the preadmission environment? Yes * Has this patient been hospitalized within the prior 30 days at any hospital? No Last DP export: 11/03/18 6:55 pm Patient Name: ANGELICA ZARATE Page 88439 at 0037 All edits/amendments must be made on the electronic document DICTATION DATE: 11/18/1836 PLUMBING ENGINEER: CARLY 11/18/1836 RPT#: [id number] DC DATE: STATUS: ADM IN [facility] [address] [place] [address] END OF REPORT
[2018-11-18 06:03] LABS: CALC OSMOLALITY 309 mosm/kg (275-300); CALCIUM 7.5 mg/dL (8.5-10.1); CARBON DIOXIDE 25.6 mmol/L (21.0-32.0); CHLORIDE - SERUM 113 mmol/L (98-107); GLUCOSE 200 mg/dL (74-106); PHOSPHOROUS 3.6 mg/dL (2.5-4.9); POTASSIUM - SERUM 3.8 mmol/L (3.5-5.1); SODIUM 146 mmol/L (136-145); UREA NITROGEN 49 mg/dL (7-18); eGFR NON AFRICAN AMERICAN 76 mL/min (90-120)
[2018-11-19 15:11] LABS: HSV CULTURE NO TYPING Positive (())
--- NOTE | 2018-11-20 09:35 | MORECARE ---
CASE MANAGEMENT DISCHARGE SUMMARY PATIENT: ANGELICA ZARATE UNIT: [id number] ADM DATE: 11/01/18 AGE: 78 : 38 SEX: M ROOM/BED: D.2310 AUTHOR: MARCELLUS,DOC PHYSICIAN: REFERRING PHYSICIAN: BUD BERNSETIN MD DATE OF SERVICE: 11/20/18 Discharge Plan Patient Name: ANGELICA ZARATE Facility: [facility]:[place] : 1940 Planned Disposition: Hospice Medical Facility Anticipated Discharge Date: 11/18/18 Discharge Date: 11/18/2018 Expected LOS: 17 Initial Reviewer: [email or web address] Initial Review Date: 11/03/2018 Generated: 11/20/18 10:34 am Comments DCP- Discharge Planning Updated by [email or web address]: Yeny Marcus on 11/17/18 11:[address] CM received order for Hospice Eval. Family request to wait until Friday11/18/18 to start Hospice once all family is here. CM will continue to follow and assist as needed with discharge planning / needs. DCP- Discharge Planning Updated by [email or web address]: Yeny Marcus on 11/03/18 6:[address] Patient Name: ANGELICA ZARATE Admission Status: ER Accout number: [id number] Admission Date: 11-01-2018 : 1940 Admission Diagnosis:SEPSIS, UNSPECIFIED ORGANISM Attending: BUD BERNSTEIN Current LOS: 2 Anticipated DC Date: Planned Disposition: Primary Insurance: MEDICARE A & B Discharge Planning Comments: CM met with patients Daughters (Guerda & Oralia) at patients bedside. Patient is currently on mask . Family states that patient lives alone. They are uncertain as to what his disposition may be at discharge. They stated he may need home health services or rehab. CM will continue to follow and assist as needed with discharge planning / needs. Knitter Machine: Yeny Marcus DCPIA - Discharge Planning Initial Assessment Updated by [email or web address]: Yeny Marcus on 11/03/18 7:44 pm * Is the patient Alert and Oriented? Yes * How many steps to enter\exit or inside your home? * PCP Lion [facility] * [facility] * Preadmission Environment Home Alone * ADLs Independent * Other Equipment cane, walker * List name and contact numbers for known caregivers / representatives who currently or will assist patient after discharge: Guerda - daughter- [phone] Oralia - daughter- [phone] [place] - son POA- [phone] * Verbal permission to speak to the caregivers and representatives has been obtained from the patient. Yes * Community resources currently utilized None * Additional services required to return to the preadmission environment? No * Can the patient safely return to the preadmission environment? Yes * Has this patient been hospitalized within the prior 30 days at any hospital? No Last DP export: 11/17/18 11:37 p Patient Name: ANGELICA ZARATE Page 64971 at 0935 All edits/amendments must be made on the electronic document DICTATION DATE: 11/20/18933 SHAPING MACHINE OPERATOR: CARLY 11/20/18933 RPT#: [id number] DC DATE:11/18/18 STATUS: DIS IN [facility] [address] [place] [address] END OF REPORT
== END 2018-11-18 17:20 | disposition hospice, inpatient (51) | DRG 871 ==
LOC: D.ER 00:04 → D.ICU 00:46
PROVIDERS: Family Medicine; Internal Medicine Gastroenterology; Internal Medicine Hematology & Oncology; Internal Medicine Nephrology; Internal Medicine Pulmonary Disease; ADMIT Internal Medicine Nephrology
PROC: 05H633Z Insertion of Infusion Device into Left Subclavian Vein, Percutaneous Approach (ICD-10-PCS; principal; 2018-11-01)
PROC: 5A09357 Assistance with Respiratory Ventilation, Less than 24 Consecutive Hours, Continuous Positive Airway Pressure (ICD-10-PCS; 2018-11-01)
PROC: 0BC18ZZ Extirpation of Matter from Trachea, Via Natural or Artificial Opening Endoscopic (ICD-10-PCS; 2018-11-13)
PROC: 0B928ZZ Drainage of Carina, Via Natural or Artificial Opening Endoscopic (ICD-10-PCS; 2018-11-13)
PROC: 0B948ZZ Drainage of Right Upper Lobe Bronchus, Via Natural or Artificial Opening Endoscopic (ICD-10-PCS; 2018-11-13)
PROC: 0B988ZZ Drainage of Left Upper Lobe Bronchus, Via Natural or Artificial Opening Endoscopic (ICD-10-PCS; 2018-11-13)
PROC: 0B918ZZ Drainage of Trachea, Via Natural or Artificial Opening Endoscopic (ICD-10-PCS; 2018-11-13)
PROC: 0B958ZZ Drainage of Right Middle Lobe Bronchus, Via Natural or Artificial Opening Endoscopic (ICD-10-PCS; 2018-11-13)
PROC: 0B938ZZ Drainage of Right Main Bronchus, Via Natural or Artificial Opening Endoscopic (ICD-10-PCS; 2018-11-13)
PROC: 0B978ZZ Drainage of Left Main Bronchus, Via Natural or Artificial Opening Endoscopic (ICD-10-PCS; 2018-11-13)
PROC: 0B968ZZ Drainage of Right Lower Lobe Bronchus, Via Natural or Artificial Opening Endoscopic (ICD-10-PCS; 2018-11-13)
PROC: 0B9B8ZZ Drainage of Left Lower Lobe Bronchus, Via Natural or Artificial Opening Endoscopic (ICD-10-PCS; 2018-11-13)
PROC: 0B998ZZ Drainage of Lingula Bronchus, Via Natural or Artificial Opening Endoscopic (ICD-10-PCS; 2018-11-13)
DX: A41.02 Sepsis due to Methicillin resistant Staphylococcus aureus (principal); J96.01 Acute respiratory failure with hypoxia; R65.21 Severe sepsis with septic shock; I21.A1 Myocardial infarction type 2; I50.21 Acute systolic (congestive) heart failure; J15.212 Pneumonia due to Methicillin resistant Staphylococcus aureus; E87.2 Acidosis; J98.11 Atelectasis; E87.0 Hyperosmolality and hypernatremia; K56.7 Ileus, unspecified; N17.9 Acute kidney failure, unspecified; I48.91 Unspecified atrial fibrillation; R53.1 Weakness; S01.01XA Laceration without foreign body of scalp, initial encounter; W19.XXXA Unspecified fall, initial encounter; E03.9 Hypothyroidism, unspecified; D75.89 Other specified diseases of blood and blood-forming organs; M10.9 Gout, unspecified; E83.51 Hypocalcemia; I71.4 Abdominal aortic aneurysm, without rupture; I11.0 Hypertensive heart disease with heart failure; E87.6 Hypokalemia; D75.82 Heparin induced thrombocytopenia (HIT); R53.81 Other malaise; R13.10 Dysphagia, unspecified